=== PATIENT | male | born 1940 | race Caucasian/White ===

== ENCOUNTER 2023-08-29 13:11 | Inpatient (IN) | payer MEDICARE, SELFPAY ==
[2023-08-29] VITALS (43 sets, daily range): BP systolic 62–158; BP diastolic 49–87; BMI 23.2
[2023-08-29 07:43] LABS: % Basophils 0.7 % (0-2); % Eosinophils 2.4 % (0-6); % Immature Granulocytes 0.4 % (0-0.5); % Lymphocytes 13.1 % (20.5-51.1); % Monocytes 5.2 % (1.7-9.3); % Neutrophils 78.2 % (42.2-75.2); Absolute Basophils 0.1 10^3/uL (0-0.2); Absolute Eosinophils 0.2 10^3/uL (0-0.7); Absolute Lymphocytes 1.1 10^3/uL (1.2-3.4); Absolute Monocytes 0.4 10^3/uL (0.1-0.6); Absolute Neutrophils 6.4 10^3/uL (1.4-6.5); Hematocrit 37.6 % (39.0-52.0); Hemoglobin 11.5 g/dL (13.0-18.0); Mean Corp Hgb Conc. 30.6 g/dL (33.0-37.0); Mean Corpuscular Volume 81.7 fL (80.0-94.0); Mean Platelet Volume 11.2 fL (7.4-10.4); Nucleated Red Blood Cells % 0 % (-); Platelet Count 338 10^3/uL (130-400); Red Cell Dist. Width 20.2 % (11.5-14.5); White Blood Cell Count 8.2 10^3/uL (4.8-10.8)
[2023-08-29 07:52] LABS: ALT (SGPT) 12 U/L (0-50); AST (SGOT) 21 U/L (17-59); Albumin 3.4 g/dl (3.5-5.0); Alkaline Phosphatase 79 U/L (38-126); Blood Urea Nitrogen 24 mg/dl (9-20); Carbon Dioxide 27 mmol/L (22-30); Chloride 108 mmol/L (98-107); Glucose 111 mg/dl (70-99); Sodium 142 mmol/L (135-145); Total Bilirubin 0.6 mg/dl (0.2-1.3); Total Protein 5.7 g/dl (6.3-8.2); eGFR > 60.00
--- NOTE | 2023-08-29 08:00 | ED.GENMED ---
History of Present Illness
General
Chief Complaint: Rectal Bleeding
Source: patient
Exam Limitations: none
Time Seen by Provider: 08/29/23 07:47
History of Present Illness
History of Present Illness:
83-year-old male on aspirin but no other blood thinners presents with bright red rectal bleeding. He he woke up this morning had the urge to have a bowel movement and he states the whole toilet was full blood. He was feeling okay walked downstairs
and had another episode of large bloody bright red blood out bowel movement. There is no abdominal pain. No chest pain. He states he felt slightly lightheaded. No fever. Denies shortness of breath. He denies alcohol use. He denies regular
NSAID use otherwise. He said years ago he had diverticulitis. Lives at home with . No other complaints.
Past History
Past History
ED Past Medical History: Arrthythmia (bradycardia and SVT), Cancer (basal cell), HTN, Hypercholesterolemia, NIDDM, Renal failure (renal insufficiency), Other (nephrolithiasis, ) and Other (diverticular bleed, Gout, BPH, vitamin B12 deficiency,
history of mumps)
ED Past Surgical History: Cholecystectomy, Orthopedic (Left arm surgery after fracture), Tonsilectomy and Other (Mohs surgery for basal cell carcinoma)
Social History
Tobacco: Former smoker
Alcohol: Former (prior to 30 years ago)
Drug: None
Personal:
Living: with family
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
Family History
Family History: Other (reviewed and noncontributory)
Phy Exam
Physical Exam
Physical Exam:
General: Well-appearing male no acute respiratory distress
HEENT: Normocephalic atraumatic
Heart: Regular rate and rhythm no murmurs
Lungs: Clear no wheeze or rales
Abdomen is soft nontender nondistended no guarding or rebound
Rectal exam: Red blood at the anal orifice. No external hemorrhoids. Internal exam showed slightly darker appearance that is heme positive. No active bleeding during my exam
Extremities: No cyanosis or edema
Course
Orders/Labs/Results
Orders:
Orders
08/29/23 07:26
EKG [Electrocardiogram (*1)] Urgent
Reason for Study: Fatigue / Weakness
EKG- Treatment ONCE
08/29/23 07:31
Type+Screen Urgent
Complete Blood Count/With Diff Urgent
Comprehensive Metabolic Panel Urgent
Prothrombin Time Urgent
Troponin I Urgent
08/29/23 09:28
Pantoprazole [Protonix IV] 80 mg IV NOW STA
08/29/23 09:30
Pantoprazole 80 mg/100 ml Nss [Protonix] 80 mg in 100 ml IV Q10H
Abnormal Lab Results
08/29/23
07:31
RBC 4.60 L 10^6/uL
(4.70-6.10)
Hgb 11.5 L g/dL
(13.0-18.0)
Hct 37.6 L %
(39.0-52.0)
MCH 25.0 L pg
(27.0-31.0)
MCHC 30.6 L g/dL
(33.0-37.0)
RDW 20.2 H %
(11.5-14.5)
MPV 11.2 H fL
(7.4-10.4)
Absolute Lymphs (auto) 1.1 L 10^3/uL
(1.2-3.4)
Neutrophils % 78.2 H %
(42.2-75.2)
Lymphocytes % 13.1 L %
(20.5-51.1)
Chloride 108 H mmol/L
(98-107)
BUN 24 H mg/dl
(9-20)
Glucose 111 H mg/dl
(70-99)
Calcium 8.0 L mg/dl
(8.4-10.2)
Total Protein 5.7 L g/dl
(6.3-8.2)
Albumin 3.4 L g/dl
(3.5-5.0)
08/29/23 07:31
08/29/23 07:31
Vital Signs
Initial and Last Documented VS:
Initial Vital Signs
Temp Pulse Resp BP Pulse Ox
97.8 F 71 17 144/63 96
08/29/23 07:29 08/29/23 07:29 08/29/23 07:29 08/29/23 07:29 08/29/23 07:29
Last Documented Vital Signs
Temp Pulse Resp BP Pulse Ox
97.8 F 72 20 133/65 96
08/29/23 07:29 08/29/23 08:15 08/29/23 08:15 08/29/23 08:00 08/29/23 08:15
MDM/Problems Addressed
Differential Diagnosis Includes:
Rectal bleeding. No obvious sign of hemorrhoid externally. The blood is red to dark red. Consider diverticular bleed. Vital signs are stable at this time, do not suspect rapid upper GI bleed. Will check labs type and screen. Keep on monitor.
Considered CT angio of the abdomen for bleeding study however will hold off at this point given stability of patient
*Critical Care Note
Total Time (30-74mins, 75-104mins- exclusive of procedures): Not Applicable
Update Note
Update Note:
Hemoglobin 11.5. Patient has dark red stool on exam that is heme positive. Vital signs remained stable. He has had multiple episodes of this bleeding. Will admit to hospital for GI bleeding. Protonix ordered
ED Attending Note
-
Portions of this chart may have been created with voice recognition software.� Occasional wrong word or��sound alike� substitutions may have occurred due to the inherent limitations of voice recognition software.
Discharge Plan
Departure
Patient Disposition: Admit
Date of Disposition: 08/29/23
Time of Disposition: 09:33
Admit to: Telemetry
Presentation/result/management discussed w/ accepting MD/DO: Hospitalist
Discharge Problem:
Rectal bleeding
Prescriptions:
No Action
omeprazole 20 MG capsule,delayed release(DR/EC)
20 mg PO DAILY
calcium polycarbophil [Fiber-Tabs] 625 MG tablet
625 mg PO DAILY
acetaminophen [Tylenol Extra Strength] 500 MG tablet
1,000 mg PO Q6HPRN PRN (Reason: ARTHRITIS)
carvedilol 3.125 MG tablet
3.125 mg PO BID
finasteride 5 MG tablet
5 mg PO DAILY
atorvastatin 40 mg Tablet
40 mg PO QPM
multivitamin Tablet
1 tab PO DAILY
ciclopirox 8 % Solution
1 applic TOPICAL HS
tamsulosin 0.4 mg Capsule
0.8 mg PO HS
aspirin 81 mg tablet,chewable
81 mg PO DAILY
lisinopril 10 mg tablet
10 mg PO DAILY Qty: 14 0RF
losartan 50 mg tablet
50 mg PO DAILY Qty: 30 0RF
Referrals:
Choco Fraser DO [Family Provider] -
Interventions
Interventions:
*Risk Screen - Suicide Last Done: 08/29/23 07:28
*General Assessment Last Done: 08/29/23 07:28
*Neglect/Abuse Screening Last Done: 08/29/23 07:28
*ED COVID-19 Vaccine History Last Done: 08/29/23 07:28
OF-Svrrjf-Pyykdouqsz Assessment Last Done: 08/29/23 07:30
ED- Cardiac Assessment Last Done: 08/29/23 07:30
ED- Pulmonary Assessment Last Done: 08/29/23 07:30
Discharge Date and Time
Print Language: WOLOF
[2023-08-29 08:03] LABS: Troponin I < 0.012 ng/ml
[2023-08-29 08:40] LABS: INR 1.08; PT 14.1 Sec (11.4-14.6)
[2023-08-29] MEDS: PROTONIX IV 80 MG IV (09:41)
[2023-08-29] MEDS: PROTONIX 100 IV ×2 (09:42→19:06)
[2023-08-29] MEDS: ZOFRAN 4 MG IV (10:18)
--- NOTE | 2023-08-29 10:19 | CON.GI ---
Addendum entered and electronically signed by Jr Blue MD 08/29/23 12:01:
I saw and examined the patient.
The AGRICULTURAL PRODUCTION ENGINEER or PA's note was reviewed and I agree with the note.
Comment: 83yo male presents with painless rectal bleeding starting this morning- dark red at home with episodes in ER and hypotension. He had episode of bilious vomiting. Has had prior admissions for rectal bleeding most likely diverticular.
Colonoscopy has found multiple polyps on his OP colonoscopy in July 2022 and recommended 6 month repeat exam. EGD/colonoscopy done in April 2022 as inpatient for bleeding found blood throughout the colon, but none in the TI. This admission, Hgb
11.5. He had CTA that showed scattered areas of minimal enhancement in large bowel, rectum maybe inflammatory without findings to confirm active colonic bleeding. Repeat Hgb 8.5.
REC:
Keep NPO for now
Trend Hgb and transfuse as needed.
Hopefully bleeding stops spontaneously. If not, can prep for colonoscopy to localize/treat source
Most likely diverticular bleed, low index suspicion for UGI bleed
Will follow
Original Note:
Consultation
-
Date/Time Consultation Requested: 08/29/23 @ 09:49
Date/Time Consultation Performed: 08/29/23 @ 10:30
Requesting Provider: Dr. Mancini
Performing Provider: JONATHON Rocha; Dr. Jr Blue
Reason for Consultation: rectal bleeding
Medical History
Chief Complaint / HPI
Chief Complaint: rectal bleeding
History of Present Illness:
The patient is an 83-year-old male with a past medical history significant for diverticulosis with ?diverticular bleed 2018, prior admission in April 2022 with rectal bleeding thought to be diverticular with unrevealing endoscopic evaluation, CAD on
aspirin, CVA, chronic renal insufficiency, hypertension, hyperlipidemia, history of SVT, gout, BPH, vitamin B12 deficiency, type 2 diabetes, who presented to the emergency room with complaints of rectal bleeding, which we are being asked to evaluate
for. Upon review of prior records, the patient had been admitted for similar symptoms in April 2022, at that time with ongoing rectal bleeding. He underwent an EGD and colonoscopy during that admission to evaluate for source of bleeding but source
was unable to be revealed. He had a poor prep of his colonoscopy with blood coating the entire colon and some stool and multiple polyps were seen but he was advised to repeat his colonoscopy with better prep for adequate visualization. He did
undergo a CTA after his procedures which showed no evidence of active GI bleed. He had no further bleeding and was advised to repeat his colonoscopy outpatient. He did have a repeat colonoscopy with Dr. Roman in JulyJuly 2022 where multiple polyps
were removed, the largest 20 mm from the ascending colon and multiple other polyps, path as noted below. He was seen in follow-up post colonoscopy in November 2022 and at that time had been doing well with no further bleeding. He was advised on a
repeat colonoscopy given the pathology showing a sessile serrated lesion with focal low-grade dysplasia, a tubulovillous adenoma, and multiple adenomatous polyps on path otherwise, but he had been having issues with his blood pressure and therefore
a colonoscopy was deferred given his age and ongoing problems. He was advised to follow-up in 6 months in the office for further discussion. He had previous GI bleeding in 2018 which was thought to be diverticular. Today he reports that he had a
sudden onset of rectal bleeding starting this morning. He notes that he felt the urge to go to the bathroom, and when he looked in the toilet bowl it was full of blood. He had a subsequent episode at home, which warranted ER evaluation. He notes
that the stool was very dark red in color. He reports ongoing issues with chronic constipation but was not taking anything on a regular basis. He does admit to straining intermittently and going several days without a bowel movement. Will take
Colace which does help him move his bowels easier. He notes chronic gas and abdominal bloating as well. He denies any abdominal pain with these episodes of bleeding. At home he denies any lightheadedness, dizziness, syncope, chest pain, or
shortness of breath. He had been taking aspirin 325 mg daily for cardiac purposes. He otherwise denies use of NSAIDs or blood thinners. He denies alcohol use. He reports that his blood pressure has been stable at home. He has not started on any
new medications. He denies any recent antibiotics. He denies any recent surgeries or hospitalizations. He otherwise denies any abdominal pain, nausea, vomiting, fevers, chills, dysphagia, odynophagia, unintentional weight loss, or loss of
appetite. Upon ER evaluation he had dark red heme positive stool on rectal exam. Hemoglobin was 11.5. He has had several episodes of bleeding in the ER but has remained hemodynamically stable. He does take aspirin daily otherwise no blood
thinners. He was placed on PPI gtt, made n.p.o., and admitted for further evaluation by GI.
Just prior to my evaluation, the nurse reported the patient had a vagal episode and with a drop of blood pressure into the 60s. He was started on IV fluid bolus with improvement to systolic blood pressure in the 120s. He was having an active
episode of bleeding during my evaluation and was diaphoretic and pale appearing. A stat H&H was ordered along with a stat CT angio of the abdomen and pelvis.
Past Medical History
Past Medical History: Arrhythmias (SVT), CAD (On aspirin 325 mg), CVA, GERD, HTN, Hypercholesterolemia, NIDDM and Other (Diverticulosis, history of suspected diverticular bleed, history of advanced colon polyps on colonoscopy in July 2022
(tubulovillous adenoma, and sessile serrated adenoma with low-grade dysplasia), B12 deficiency, gout, BPH, kidney stones, chronic renal insufficiency)
Past Surgical History: Cholecystectomy, Orthopedic (Left arm surgery), Tonsilectomy and Other (Mohs procedure for basal cell carcinoma)
Social History
Tobacco: Non-Smoker
Alcohol: None
Drug: None
Personal:
Living: With Family
Family History
Family History: Reviewed & Not Pertinent
Allergies / Home Medications
Allergy/AdvReac Type Severity Reaction Status Date / Time
Penicillins Allergy Unknown Verified 08/29/23 07:26
from
childhood
�Medication �Instructions �Recorded
calcium polycarbophil 625 mg 625 mg PO DAILY Gastrointestinal 03/13/17
tablet (Fiber-Tabs) issue
omeprazole 20 mg capsule,delayed 20 mg PO DAILY Gastrointestinal 03/13/17
release issue
acetaminophen 500 mg tablet 1,000 mg PO Q6HPRN PRN ARTHRITIS 12/30/18
(Tylenol Extra Strength)
carvedilol 3.125 mg tablet 3.125 mg PO BID Blood pressure 12/30/18
finasteride 5 mg tablet 5 mg PO DAILY BPH 12/30/18
atorvastatin 40 mg tablet 40 mg PO QPM High cholesterol 04/26/22
aspirin 81 mg chewable tablet 325 mg PO DAILY Supplement 11/27/22
tamsulosin 0.4 mg capsule 0.8 mg PO HS Urinary Issue 11/27/22
losartan 50 mg tablet 50 mg PO DAILY #30 tabs 12/14/22
furosemide 20 mg tablet 20 mg PO DAILY 08/29/23
loratadine-pseudoephedrine ER 10 1 tab PO DAILY 08/29/23
mg-240 mg tablet,extended
[id number] (Claritin-D 24 Hour)
Review of Systems
-
History Source: Patient and Family
Constitutional: Reports No Symptoms
EENT: Reports No Symptoms
Respiratory: Reports No Symptoms
Cardiac: Reports No Symptoms
Abdomen/GI: Reports Constipated and Bloody Stools
: Reports No Symptoms
Musculoskeletal: Reports No Symptoms
Skin: Reports No Symptoms
Neurological: Reports Weakness
Vital Signs
Temp Pulse Resp BP Pulse Ox
97.8 F 72 20 133/65 96
08/29/23 07:29 08/29/23 08:15 08/29/23 08:15 08/29/23 08:00 08/29/23 08:15
Physical Exam
Exam
General: Well Nourished and Other (Elderly appearing male, pale appearing, and diaphoretic)
HEENT: Normocephalic, Anicteric and Atraumatic
Respiratory: Clear
Cardiac: S1/S2 and Regular Rhythm
Breast: N/A
GI: Soft, Non Tender, Non Distended and Normal Bowel Sounds
Rectal: Other (Per ER doctor positive for dark red blood and heme positive; dark red blood with clots in the bedpan)
Musculoskeletal: No Edema
Skin: Warm, Dry and Other (Pale appearing)
Neuro: Awake, Alert and Oriented
Psych: Calm
Results
WBC 8.2 10^3/uL (4.8-10.8) 08/29/23 07:31
Hgb 11.5 g/dL (13.0-18.0) L 08/29/23 07:
Hct 37.6 % (39.0-52.0) L 08/29/23 07:31
MCV 81.7 fL (80.0-94.0) 08/29/23 07:31
Plt Count 338 10^3/uL (130-400) 08/29/23 07:31
Absolute Neuts (auto) 6.4 10^3/uL (1.4-6.5) 08/29/23 07:31
PT 14.1 Sec (11.4-14.6) 08/29/23 07:31
INR 1.08 08/29/23 07:31
Sodium 142 mmol/L (135-145) 08/29/23 07:31
Potassium 4.0 mmol/L (3.5-5.1) 08/29/23 07:31
Chloride 108 mmol/L (98-107) H 08/29/23 07:31
Carbon Dioxide 27 mmol/L (22-30) 08/29/23 07:31
BUN 24 mg/dl (9-20) H 08/29/23 07:31
Creatinine 1.0 mg/dL (0.7-1.3) 08/29/23 07:31
Calcium 8.0 mg/dl (8.4-10.2) L 08/29/23 07:31
Total Bilirubin 0.6 mg/dl (0.2-1.3) 08/29/23 07:31
AST 21 U/L (17-59) 08/29/23 07:31
ALT 12 U/L (0-50) 08/29/23 07:31
Alkaline Phosphatase 79 U/L (38-126) 08/29/23 07:31
Diagnostic Image Results: None for review
Prior GI Procedures:
EGD: 04/28/22 Dr. Kelly: Normal esophagus. Small hiatal hernia. Multiple gastric polyps. Biopsied. Non-bleeding duodenal diverticulum.
Colonoscopy: 07/11/2022 Dr. Roman: Hemorrhoids found on perianal exam. The examined portion of the ileum was normal. One 20 mm polyp in the ascending colon, removed with mucosal resection. Resected and retrieved. Treated with argon plasma
coagulation (APC). Tattooed. Four 4 to 9 mm polyps in the ascending colon, removed with a cold snare. Resected and retrieved. Two 6 to 11 mm polyps in the transverse colon, removed with a cold snare. Resected and retrieved. One 7 mm polyp in the
descending colon, removed with a cold snare. Resected and retrieved. One 6 mm polyp in the rectum, removed with a cold snare. Resected and retrieved. Diverticulosis in the entire examined colon. Mucosal resection was performed. Resection and
retrieval were complete.
04/28/22 Dr. Kelly: Preparation of the colon was unsatisfactory with blood coating the entire colon with some stool. Diverticulosis in the sigmoid colon, in the descending colon, in the transverse colon and in the ascending
colon. Blood in the entire examined colon. One 25 mm polyp in the distal ascending colon. Biopsied. Four 5 to 10 mm polyps in the rectum, in the sigmoid colon, in the descending colon and in the transverse colon. Resection
not attempted. The examined portion of the ileum was normal.
Assessment / Plan
-
The patient is an 83-year-old male with a past medical history significant for diverticulosis with ?diverticular bleed 2017, prior admission in April 2022 with rectal bleeding thought to be diverticular with unrevealing endoscopic evaluation,
chronic constipation, CAD on aspirin, CVA, chronic renal insufficiency, hypertension, hyperlipidemia, history of SVT, gout, BPH, vitamin B12 deficiency, type 2 diabetes, who presented to the emergency room with complaints of rectal bleeding, with
concern for ongoing GI bleed with a vagal episode and drop of blood pressure in the emergency room any recurrent episode of large volume rectal bleeding of dark red blood with clots. His blood pressure has since improved in the 120 systolic after
IV fluids. Placed on a PPI drip and has been n.p.o. since yesterday. His hemoglobin was 11.5 with repeat stat H&H pending. He did have an episode of vomiting that was bilious in color.
Problem list:
-rectal bleeding
-hypotension 2/2 bleeding/hypovolemia improved with IV fluids
-Diverticulosis with hx suspected diverticular bleeding in 2017, April 2022
-Advanced colon polyps, Tubulovillous adenoma, SSA with low grade dysplasia, multiple adenomas in July 2022
-HX CAD on aspirin 325mg
-Chronic constipation
Other pertinent medical hx:
-HTN
-HLD
-GERD
-gout
-CVA
-BPH
-Vitamin b12 deficiency
-DM2
Recommendations:
-Etiology of rectal bleeding possibly diverticular versus less likely brisk upper GI bleed versus AVMs versus other. Similar presentation in 2022 with no clear source of bleeding identified on endoscopic evaluation and CTA.
-Given his hypotension episode and recurrent bleeding, will check a stat CT angio of the abdomen and pelvis, called CAT scan and he will be next for scan. The patient and his are agreeable to this plan. If active bleed will need IR
intervention.
-Stat H&H now, then trend
-Hold further aspirin, will need to discuss stopping this indefinitely given his recurrent bleeding
-Keep n.p.o. for now
-Monitor for recurrent bleeding
-Continue PPI drip for now, but given his bilious emesis I doubt this is an upper GI bleed.
-Large-bore IVs
-Continue IV fluids for blood pressure support
-Await CTA for further management
-Ensure hemodynamic stability
-He will need a bowel regimen at the time of discharge to prevent constipation and straining which can contribute to bleeding
-To consider colonoscopy versus flex Sig inpatient pending above
-Plan reviewed with Dr. Blue and the ER physician/nurse
-Will follow
Data Reviewed
-
Old Records: Reviewed
-
-
Thank you for consultation and allowing me to participate in the patient's care. Please call the compensation intern GI physician during the after hours with any questions or concerns.
[2023-08-29] MEDS: NSS 1000 IV ×3 (10:24→22:20)
[2023-08-29 11:27] LABS: Hematocrit 27.7 % (39.0-52.0); Hemoglobin 8.5 g/dL (13.0-18.0)
--- NOTE | 2023-08-29 12:27 | HPS.HSE ---
Family Physician
-
Family Physician: Chelsi Junior
Chief Complaint
-
Rectal bleeding
History of Present Illness
83 y/o M with PMHx:
CAD
CVA
GERD
Essential HTN
HLD
Vit B12 def
Gout
BPH
Nephrolithiasis
Diverticulosis
who p/w CC rectal bleeding. The patient had 2 episodes of large bright red blood per rectum this morning. He had some lightheadedness. He denies chest pain, shortness of breath, abdominal pain. Denies any recent NSAID use. He denies any other
acute symptoms. In the ER he had what appears to have been a vagal event.
Medical History
Past Medical History
Past Medical History: Reports Other (as per HPI)
Past Surgical History: Reports Other (N/A)
Social History
Tobacco: Former Smoker
Alcohol: Former (>30 years ago)
Drug: None
Family History
Family History: Not pertinent
Allergies / Home Medications
Allergies reflects when Allergies were last updated in [facility].
Home Medications with original date entered in [facility]
Allergy/Medication List:
Allergies
Allergy/AdvReac Type Severity Reaction Status Date / Time
Penicillins Allergy Unknown Verified 08/29/23 07:26
from
childhood
Home Medications
calcium polycarbophil 625 mg tablet (Fiber-Tabs) 625 mg PO DAILYPRN PRN constipation 03/13/17
omeprazole 20 mg capsule,delayed release 20 mg PO DAILY Gastrointestinal issue 03/13/17
carvedilol 3.125 mg tablet 3.125 mg PO BID Blood pressure 12/30/18
finasteride 5 mg tablet 5 mg PO DAILY BPH 12/30/18
atorvastatin 40 mg tablet 40 mg PO QPM High cholesterol 04/26/22
aspirin 81 mg chewable tablet 325 mg PO DAILY Supplement 11/27/22
tamsulosin 0.4 mg capsule 0.8 mg PO HS Urinary Issue 11/27/22
losartan 50 mg tablet 50 mg PO DAILY #30 tabs 12/14/22
docusate sodium 100 mg capsule (Colace) 100 mg PO BIDPRN PRN constipation 08/29/23
furosemide 20 mg tablet 20 mg PO DAILY 08/29/23
loratadine 10 mg tablet (Claritin) 10 mg PO DAILY 08/29/23
Review of Systems
-
History Source: Patient
A 12 point ROS was completed and negative except as noted: Yes
Physical Exam
Vital Signs
Vital Signs
Temp Pulse Resp BP Pulse Ox
97.8 F 80 22 124/61 95
08/29/23 07:29 08/29/23 11:50 08/29/23 11:50 08/29/23 11:50 08/29/23 11:50
Physical Exam
General: Other (.)
Laboratory Results
-
08/29/23 07:31
Laboratory Results
PT 14.1 Sec (11.4-14.6) 08/29/23 07:31
INR 1.08 08/29/23 07:31
Total Bilirubin 0.6 mg/dl (0.2-1.3) 08/29/23 07:31
AST 21 U/L (17-59) 08/29/23 07:31
ALT 12 U/L (0-50) 08/29/23 07:31
Alkaline Phosphatase 79 U/L (38-126) 08/29/23 07:31
Troponin I < 0.012 ng/ml 08/29/23 07:31
Impression/Plan
-
Gen: NAD, AAOx3.
Eyes: EOMI, PERRLA, no scleral icterus.
Neck: supple.
CV: RRR, +S1/S2, no m/r/g.
Resp: CTAB, no rales, wheezes, or rhonchi.
Abd: +BS, soft, NT, ND
Skin: No rashes.
Neuro: CN 2-12 intact, non-focal.
Psych: Normal mood and affect.
Acute blood loss anemia:
-Presented with bright red blood per rectum
-Continue Protonix drip in case this is an upper GI bleed with rapid transit time (less likely but want to be safe in short term)
-GI following
-NPO/IVFs
-trend Hb
-hold ASA (possibly contributed)
Other problems:
CAD: hold ASA, cont statin/Coreg
h/o CVA:
GERD: on PPI gtt
Essential HTN: Hold ARB/BB
HLD
Vit B12 def
Gout
BPH: cont Flomax
Nephrolithiasis
Diverticulosis
FULL/SCDs/IMU
[2023-08-29 14:29] LABS: Hemoglobin 9.6 g/dL (13.0-18.0)
[2023-08-29] MEDS: LIPITOR 40 MG PO (17:14)
[2023-08-29 19:23] LABS: Hemoglobin 9.1 g/dL (13.0-18.0)
--- NOTE | 2023-08-29 19:30 | PTCARENOTE ---
Received patient at 1900. Pt. currently in bed. Awake, alert, and oriented. Denies pain/discomfort at this time. Afebrile. Heart rhythm sinus. Blood pressure normotensive. Currently on room air. Lungs sound diminished. NPO. Small amount burgundy
stool. Voiding in urinal. Skin as documented. Discussed plan of care. Vital signs stable at this time.
[2023-08-29] MEDS: FLOMAX 0.8 MG PO (21:36)
[2023-08-30] VITALS (9 sets, daily range): BP systolic 138–169; BP diastolic 54–70; BMI 23.3
--- NOTE | 2023-08-30 | PTCARENOTE ---
Pt. assessment unchanged. 1x small amount burgundy stool earlier in shift. Last hemoglobin 9.1. Will continue to trend. Vital signs stable at this time.
--- NOTE | 2023-08-30 03:30 | PTCARENOTE ---
Pt. assessment remains unchanged. Has not had any additional bowel movements. AM labs drawn. Vital signs stable at this time.
[2023-08-30 03:48] LABS: Hematocrit 25.8 % (39.0-52.0); Hemoglobin 8.2 g/dL (13.0-18.0); Mean Corp Hgb Conc. 31.8 g/dL (33.0-37.0); Mean Corpuscular Hgb 25.5 pg (27.0-31.0); Mean Corpuscular Volume 80.4 fL (80.0-94.0); Mean Platelet Volume 11.5 fL (7.4-10.4); Platelet Count 272 10^3/uL (130-400); Red Blood Cell Count 3.21 10^6/uL (4.70-6.10); White Blood Cell Count 8.9 10^3/uL (4.8-10.8)
[2023-08-30 04:16] LABS: Blood Urea Nitrogen 23 mg/dl (9-20); Calcium 6.8 mg/dl (8.4-10.2); Carbon Dioxide 23 mmol/L (22-30); Chloride 112 mmol/L (98-107); Estimated Creatinine Clearance 56 ml/min; Glucose 76 mg/dl (70-99); Potassium 3.6 mmol/L (3.5-5.1); Sodium 141 mmol/L (135-145); eGFR > 60.00
[2023-08-30] MEDS: KCL 270 MEQ IV (04:35)
[2023-08-30] MEDS: CALCIUM GLUCONATE 290 MG IV (05:19)
[2023-08-30] MEDS: PROTONIX 100 IV (05:20)
[2023-08-30] MEDS: NSS 1000 IV ×2 (05:20→22:20)
--- NOTE | 2023-08-30 08:00 | W.PN.HOSP.TC ---
Today's Communication/Plan
-
see bold
Assessment / Plan
Assessment / Plan
Gen: NAD, AAOx3.
Eyes: EOMI, PERRLA, no scleral icterus.
Neck: supple.
CV: remains RRR, +S1/S2, no m/r/g.
Resp: remains CTAB, no rales, wheezes, or rhonchi.
Abd: remains +BS, soft, NT, ND
Skin: No rashes.
Neuro: CN 2-12 intact, non-focal.
Psych: Normal mood and affect.
Acute blood loss anemia:
-Presented with bright red blood per rectum
-stop Protonix gtt, change to PPI BID
-GI following
-NPO/IVFs (decreased rate to 60cc/hr)
-trend Hb
-holding ASA (possibly contributed)
Other problems:
CAD: hold ASA, cont statin/Coreg
h/o CVA:
GERD: on PPI
Essential HTN: restart BB/ARB
HLD
Vit B12 def
Gout
BPH: cont Flomax
Nephrolithiasis
Diverticulosis
FULL/SCDs
RN updated
Downgrade to tele.
Total time spent on today's encounter was 50 minutes which included time spent in counseling the patient/family regarding diagnosis and treatment plan as listed above, goals of care, and symptom management. Case was discussed with nursing staff,
specialists, and care coordinators/case management. All labs and imaging personally reviewed by me. Remainder the time spent in detailed review of previous records, lab data, imaging, and other medical provider documentation.
Anticipated Discharge: 24 - 48 hours
Subjective/Interval History
-
Date of Service: August 30, 2023
Denies CP/SOB/abd pain. One burgundy stool.
Objective Data
-
Labs:
Laboratory Results
08/30/23 08/30/23 08/30/23
02:34 03:20 08:34
WBC 8.9
Hgb Cancelled 8.2 L Pending
Hct Cancelled 25.8 L Pending
Plt Count 272
Sodium 141
Potassium 3.6
Chloride 112 H
Carbon Dioxide 23
BUN 23 H
Creatinine 0.9
Glucose 76
Calcium 6.8 L*
Vital Signs:
Vital Signs
Temp Pulse Resp BP Pulse Ox
98.9 F 60 24 158/63 97
08/30/23 07:06 08/30/23 06:00 08/30/23 06:00 08/30/23 06:00 08/30/23 04:00
I&O
08/29/23 08/30/23 08/31/23
06:59 06:59 06:59
Intake Total 2215 / 2215
Output Total 550 / 550
Balance 1665 / 1665
[2023-08-30] MEDS: PROSCAR 5 MG PO (08:01)
[2023-08-30] MEDS: CLARITIN 10 MG PO (08:01)
--- NOTE | 2023-08-30 08:17 | PTCARENOTE ---
Rec'd pt at 0700. Pt AAOx3, follows commands, NICHOLSON. Monitor SR with occas PAC/PVC. Lungs dim, pox 98% RA. +BS, abd soft/nt. Protonix gtts infusing at 8mg/hr. Vdg yellow urine via urinal. Pt asking when he can eat, explained process for GIB and need
for resting the stomach. Pt verbalizes understanding.
[2023-08-30] MEDS: COREG 3.125 MG PO ×2 (08:36→20:56)
[2023-08-30] MEDS: PROTONIX IV 40 MG IV (08:37)
[2023-08-30] MEDS: NSS (PRESERVATIVE FREE) 10 ML IV (08:37)
[2023-08-30] MEDS: COZAAR 50 MG PO (08:47)
--- NOTE | 2023-08-30 09:03 | W.PN.GI.CBS2 ---
Today's Communication / Plan
-
Hgb dropped to 8.2, but no further bleeding
Start low residue diet
D/C protonix gtt
Monitor for recurrent bleed and if no further, can probably d/c tomorrow
F/U with Dr Roman for colon polyp surveillance after d/c
Assessment / Plan
-
Summary: 83-year-old male with a past medical history significant for diverticulosis with ?diverticular bleed 2018, prior admission in April 2022 with rectal bleeding thought to be diverticular with unrevealing endoscopic evaluation, chronic
constipation, CAD on aspirin, CVA, chronic renal insufficiency, hypertension, hyperlipidemia, history of SVT, gout, BPH, vitamin B12 deficiency, type 2 diabetes, who presented to the emergency room with complaints of rectal bleeding, with concern
for ongoing GI bleed with a vagal episode and drop of blood pressure in the emergency room and recurrent episode of large volume rectal bleeding of dark red blood with clots. His blood pressure has since improved in the 120 systolic after IV
fluids. Placed on a PPI drip and has been n.p.o. since yesterday. His hemoglobin was 11.5 with repeat stat H&H pending. He did have an episode of vomiting that was bilious in color.
Problem list:
-rectal bleeding likely diverticular
-hypotension 2/2 bleeding/hypovolemia improved with IV fluids
-Diverticulosis with hx suspected diverticular bleeding in April 2022
-Advanced colon polyps, Tubulovillous adenoma, SSA with low grade dysplasia, multiple adenomas in July 2022
-HX CAD on aspirin 325mg
-Chronic constipation
Other pertinent medical hx:
-HTN
-HLD
-GERD
-gout
-CVA
-BPH
-Vitamin b12 deficiency
-DM2
Subjective
Subjective
Date of Service: August 30, 2023
No BMs since ER yesterday. Denies complaints.
Objective
Data Reviewed
Laboratory Data:
Laboratory Results
08/30/23 03:20
Laboratory Results
PT 14.1 Sec (11.4-14.6) 08/29/23 07:31
INR 1.08 08/29/23 07:31
Total Bilirubin 0.6 mg/dl (0.2-1.3) 08/29/23 07:31
AST 21 U/L (17-59) 08/29/23 07:31
ALT 12 U/L (0-50) 08/29/23 07:31
Alkaline Phosphatase 79 U/L (38-126) 08/29/23 07:31
Vital Signs and I&O:
Vital Signs
Temp Pulse Resp BP Pulse Ox
98.9 F 78 25 169/54 97
08/30/23 07:06 08/30/23 08:19 08/30/23 08:19 08/30/23 08:19 08/30/23 04:00
I&O
08/29/23 08/30/23 08/31/23
06:59 06:59 06:59
Intake Total 2215 / 2215 270 / 270
Output Total 550 / 550 500 / 500
Balance 1665 / 1665 -230 / -230
Physical Exam
Physical Exam
GI: Soft, Non Distended and Non Tender
[2023-08-30 09:10] LABS: Hemoglobin 8.2 g/dL (13.0-18.0)
--- NOTE | 2023-08-30 09:10 | PTCARENOTE ---
Spoke with MD about increasing SBP, home BP meds restarted. Protonix gtts dc'd. Pt for transfer to tele when bed available.
--- NOTE | 2023-08-30 11:55 | CM ---
CM following re: d/c planning.
Pt presents to with rectal bleeding.
GI on board.
CM met with pt at bedside to complete IA.
Pt resides with spouse, daughter, and grandchild at home.
he states he ambulates with walker and cane.
He has a stair glide.
No current VN.
PCP is Dr. Junior and [facility] in [place].
Pt does not anticipate any d/c needs.
We spoke about VN, but he declines.
Goal: home, no needs.
--- NOTE | 2023-08-30 14:30 | CHAP ---
Visited Mr. Barriga at 10:00. He is a bit frustrated, but accepting of his situation. Emotional and spiritual support provided.
--- NOTE | 2023-08-30 16:01 | PTCARENOTE ---
~1400 pt assisted OOB to recliner chair. Pt stated he felt a little dizzy upon standing, BP taken- SBP 150's. Pt to bathroom with walker and assist of 1, cristela mckeon BMx2. Family in to visit, updated.
[2023-08-30] MEDS: LIPITOR 40 MG PO (17:05)
--- NOTE | 2023-08-30 20:47 | PTCARENOTE ---
assumed care of patient approx 1900.
OOB to bathroom for ADLs.
Remains sinus, slightly hypertensive, home bp meds restarted. No complaints offered.
cont. to monitor for refractory bleeding.
[2023-08-30] MEDS: FLOMAX 0.8 MG PO (22:20)
[2023-08-31] VITALS: BP 128/65
--- NOTE | 2023-08-31 00:45 | PTCARENOTE ---
No change in assessment. Pt. resting in bed/ hemodynamically stable, offers no complaints.
[2023-08-31 04:00] VITALS: BP 162/65
--- NOTE | 2023-08-31 04:06 | PTCARENOTE ---
No change in patient assessment.
[2023-08-31 04:35] LABS: Hematocrit 25.4 % (39.0-52.0); Mean Corp Hgb Conc. 31.5 g/dL (33.0-37.0); Mean Corpuscular Hgb 25.6 pg (27.0-31.0); Mean Corpuscular Volume 81.2 fL (80.0-94.0); Mean Platelet Volume 10.8 fL (7.4-10.4); Platelet Count 275 10^3/uL (130-400); Red Blood Cell Count 3.13 10^6/uL (4.70-6.10); Red Cell Dist. Width 20.2 % (11.5-14.5); White Blood Cell Count 8.2 10^3/uL (4.8-10.8)
[2023-08-31 04:49] LABS: Blood Urea Nitrogen 18 mg/dl (9-20); Calcium 8.1 mg/dl (8.4-10.2); Carbon Dioxide 25 mmol/L (22-30); Chloride 111 mmol/L (98-107); Estimated Creatinine Clearance 46 ml/min; Glucose 91 mg/dl (70-99); Potassium 3.7 mmol/L (3.5-5.1); Sodium 142 mmol/L (135-145); eGFR > 60.00
[2023-08-31 05:54] VITALS: BMI 23.2
[2023-08-31] MEDS: CLARITIN 10 MG PO (07:42)
[2023-08-31] MEDS: COREG 3.125 MG PO (07:42)
[2023-08-31] MEDS: COZAAR 50 MG PO (07:43)
[2023-08-31] MEDS: PROSCAR 5 MG PO (07:43)
[2023-08-31 07:45] VITALS: BP 160/60
--- NOTE | 2023-08-31 09:57 | W.PN.HOSP.TC ---
Today's Communication/Plan
-
d/c home
Assessment / Plan
Assessment / Plan
Acute blood loss anemia
Presumed diverticular bleed
-Presented with bright red blood per rectum
-GI evaluated and suspected diverticular bleed in nature. No further intervention/C-scope recommended
-Able to tolerate low residue diet
-No further episodes of GI bleed overnight. Hemoglobin drifted down to 8, close to hemoglobin of 8.2 from yesterday
-At discharge decrease aspirin to 81 mg daily -unclear why patient was on 325 mg daily
-Follow-up CBC prescription in 1 week provided
Other problems:
CAD: resume back on asa/statin/coreg
h/o CVA:
GERD: on PPI
Essential HTN: restart BB/ARB
HLD
Vit B12 def
Gout
BPH: cont Flomax
Nephrolithiasis
Diverticulosis
FULL/SCDs
More than 30 minutes spent in discharge including
Final examination of the patient
Summarizing hospital stay
Instructions for continuing care to all relevant caregivers
Preparation of discharge records, prescriptions, and referral forms
Total time spent (in minutes): 38 mins
Anticipated Discharge: Today
Subjective/Interval History
-
Date of Service: August 31, 2023
Denies more blood in stool overnight
No abdominal pain/nausea
No other acute issues
Objective Data
-
Labs:
Laboratory Results
08/31/23
04:14
WBC 8.2
Hgb 8.0 L
Hct 25.4 L
Plt Count 275
Sodium 142
Potassium 3.7
Chloride 111 H
Carbon Dioxide 25
BUN 18
Creatinine 1.1
Glucose 91
Calcium 8.1 L
Vital Signs:
Vital Signs
Temp Pulse Resp BP Pulse Ox
98.6 F 46 16 160/60 97
08/31/23 07:46 08/31/23 08:00 08/31/23 07:45 08/31/23 07:45 08/31/23 07:46
I&O
08/30/23 08/31/23 09/01/23
06:59 06:59 06:59
Intake Total 2215 / 2285 2360 / 2360
Output Total 550 / 550 1850 / 1850
Balance 1665 / 1735 510 / 510
Review of Systems
-
Respiratory: Reports No Symptoms
Cardiac: Reports No Symptoms
Abdomen/GI: Reports No Symptoms
Physical Exam
-
General: No Apparent Distress and Comfortable
HEENT: Negative Oxygen
Respiratory: Clear to Auscultation
Cardiac: Regular Rhythm and S1/S2; Negative Murmur or Rub
GI: Soft, Nontender, Nondistended and Normal Bowel Sounds
Musculoskeletal: No Edema
Neuro: Awake, Alert, Oriented, No Motor Deficits and Nonfocal/Grossly Intact
Psych: Calm
--- NOTE | 2023-08-31 10:49 | W.PN.GI.CBS2 ---
Today's Communication / Plan
-
OK for d/c
Told pt to call to set up follow up colonoscopy with Dr Roman for multiple polyps
Assessment / Plan
-
Summary: 83-year-old male with a past medical history significant for diverticulosis with ?diverticular bleed 2018, prior admission in April 2022 with rectal bleeding thought to be diverticular with unrevealing endoscopic evaluation, chronic
constipation, CAD on aspirin, CVA, chronic renal insufficiency, hypertension, hyperlipidemia, history of SVT, gout, BPH, vitamin B12 deficiency, type 2 diabetes, who presented to the emergency room with complaints of rectal bleeding, with concern
for ongoing GI bleed with a vagal episode and drop of blood pressure in the emergency room and recurrent episode of large volume rectal bleeding of dark red blood with clots. His blood pressure has since improved in the 120 systolic after IV
fluids. Placed on a PPI drip and has been n.p.o. since yesterday. His hemoglobin was 11.5 with repeat stat H&H pending. He did have an episode of vomiting that was bilious in color.
Problem list:
-rectal bleeding likely diverticular
-hypotension 2/2 bleeding/hypovolemia improved with IV fluids
-Diverticulosis with hx suspected diverticular bleeding in 2017, April 2022
-Advanced colon polyps, Tubulovillous adenoma, SSA with low grade dysplasia, multiple adenomas in July 2022
-HX CAD on aspirin 325mg
-Chronic constipation
Other pertinent medical hx:
-HTN
-HLD
-GERD
-gout
-CVA
-BPH
-Vitamin b12 deficiency
-DM2
Subjective
Subjective
Date of Service: August 31, 2023
No further bleeding. Tolerated diet
Objective
Data Reviewed
Laboratory Data:
Laboratory Results
08/31/23 04:14
08/31/23 04:14
Laboratory Results
PT 14.1 Sec (11.4-14.6) 08/29/23 07:31
INR 1.08 08/29/23 07:31
Total Bilirubin 0.6 mg/dl (0.2-1.3) 08/29/23 07:31
AST 21 U/L (17-59) 08/29/23 07:31
ALT 12 U/L (0-50) 08/29/23 07:31
Alkaline Phosphatase 79 U/L (38-126) 08/29/23 07:31
Vital Signs and I&O:
Vital Signs
Temp Pulse Resp BP Pulse Ox
98.6 F 58 16 160/60 97
08/31/23 07:46 08/31/23 10:00 08/31/23 07:45 08/31/23 07:45 08/31/23 07:46
I&O
08/30/23 08/31/23 09/01/23
06:59 06:59 06:59
Intake Total 2215 / 2285 2360 / 2360
Output Total 550 / 550 1850 / 1850
Balance 1665 / 1735 510 / 510
Physical Exam
Physical Exam
GI: Soft, Non Distended and Non Tender
--- NOTE | 2023-08-31 10:55 | CM ---
CM following re: discharge planning.
Reviewed pt's chart, met with pt.
Discharge order noted. Pt is aware, expressed his agreement with discharge. IMM reviewed, placed on chart, pt has a copy.
Pt reports he lives with spouse in a 2SH, 2 steps to enter, has 2 supportive children. Pt reports he uses both a walker and a cane, has stair glide. Pt declined after care VN services. Pt stated his spouse is coming to transport him home.
D/C plan: home no after care VN needs. Spouse to transport.
--- NOTE | 2023-08-31 11:35 | PTCARENOTE ---
Discharge instructions, medications, and prescriptions reviewed with pt and caregiver. PT discharged at 1130
== END 2023-08-31 11:55 | disposition home or self-care (01) | DRG 378 ==
LOC: ICU 13:11
PROVIDERS: Nurse Practitioner Family; ADMITTING PHYSICIAN Internal Medicine; ATTENDING PHYSICIAN Hospitalist; CONSULT PHYSICIAN Specialist; EMERGENCY PHYSICIAN Emergency Medicine; FAMILY PHYSICIAN Family Medicine
DX: K57.91 Diverticulosis of intestine, part unspecified, without perforation or abscess with bleeding (principal); D62 Acute posthemorrhagic anemia; Z87.891 Personal history of nicotine dependence; I25.10 Atherosclerotic heart disease of native coronary artery without angina pectoris; I12.9 Hypertensive chronic kidney disease with stage 1 through stage 4 chronic kidney disease, or unspecified chronic kidney disease; E11.22 Type 2 diabetes mellitus with diabetic chronic kidney disease; N18.9 Chronic kidney disease, unspecified; E78.00 Pure hypercholesterolemia, unspecified; K63.5 Polyp of colon; E53.8 Deficiency of other specified B group vitamins
CPT/HCPCS: 74174; 80048; 80053; 84484; 85014; 85018; 85025; 85027; 85610; 86850; 86900; 86901; 93005; 96365; 96366; 96375; 99285; Q9967

== ENCOUNTER 2024-11-17 10:37 | Emergency (ER) | payer MEDICARE, BC, SELFPAY ==
[2024-11-17 10:39] VITALS: BP 207/76
--- NOTE | 2024-11-17 11:09 | ED.GENMED ---
History of Present Illness
General
Chief Complaint: Back Pain
Time Seen by Provider: 11/17/24 11:09
History of Present Illness
History of Present Illness:
FOCUSED PAST MEDICAL HISTORY
- High blood pressure
REVIEW OF OLD RECORDS
- The patient was admitted in August 2023 with presumed diverticular bleed/lower GI bleed. At that time the patient was also hypotensive.
- A-fib: Note from late indicated patient had a 'heart rate 45 ventricular ectopy high blood pressure, back pain'
Note:
CHIEF COMPLAINT(S)
Right-sided back pain near the hip and pelvis area.
HISTORY OF PRESENT ILLNESS
The patient is an 84-year-old male who presented with right-sided pain located near the hip and pelvis area. He has experienced this pain for approximately one and a half weeks. The pain is described as not significantly severe at the moment. The
patient mentioned discomfort when moving or twisting, but the pain is not exacerbated significantly by palpation or pressure. The pain has no significant abdominal pain, and no masses were detected. The patient has no history of aortic aneurysms.
He attempted to manage the pain by taking an unspecified medication. The patients primary care nurse practitioner noted elevated blood pressure during a recent visit. An irregular EKG was mentioned, though details were unclear to the patient. The
patient used to be on blood pressure medication, Carvedilol, which he did not take today. He also mentioned having issues with his kidneys in the past and suggested that the pain might be related to this history.
CHRONIC MEDICAL CONDITIONS SIGNIFICANTLY AFFECTING CARE
Hypertension.
MEDICATIONS
The patient is unsure as he following:
Carvedilol today with this 3.125 mg daily
Losartan 50mg daily
PHYSICAL EXAM
General: Alert, no acute distress.
Skin: Warm, dry.
Head: Normocephalic, atraumatic.
Neck: Supple, trachea midline.
Eye, Ears, Nose, Mouth and Throat: Oral mucosa moist.
Cardiovascular: Normal peripheral perfusion, no edema.
Respiratory: Respirations are non-labored.
Gastrointestinal: Abdomen nondistended, discomfort upon palpation but no masses detected.
Back: Normal range of motion, Normal alignment.
Musculoskeletal: Normal range of motion, normal strength.
Neurological: Alert and oriented to person, place, time, and situation, No focal neurological deficit observed.
Psychiatric: Cooperative, appropriate mood and affect.
PROBLEM LIST
Acute: Right-sided back and pelvic pain.
Chronic: Hypertension.
PLAN
1. The patient will undergo a Computed Tomography (CT) scan of the abdomen to evaluate for any signs of aortic abnormalities or kidney stones, and to assess bones and muscles.
2. Consider administering a dose of Losartan, contingent upon verification, as an interim treatment for elevated blood pressure.
3. The patient declined Tylenol for pain management.
4. The patient will provide a urine sample for analysis.
DIFFERENTIAL DIAGNOSIS
The Differential Diagnosis includes, in no particular order and is not limited to:
1. Musculoskeletal strain
2. Kidney stone
3. Urinary tract infection
4. Aortic aneurysm
5. Pyelonephritis
6. Renal colic
7. Osteoarthritis
8. Lumbar radiculopathy
9. Hip fracture
10. Abdominal aortic aneurysm
RADIOLOGY
- CT imaging pending�I personally reviewed CT no acute abnormality, bilateral renal cysts again noted
EKG
- Sinus 46, leftward axis deviation, no acute ST abnormality
LABS
- As ordered considered urinalysis however the patient has no urinary symptoms
UPDATE
-SUMMARY OF ENCOUNTER
The patient, an 84-year-old male, was seen in the emergency department for right-sided back pain near the hip and pelvis area that has been ongoing for about one and a half weeks. A CT scan of the abdomen was performed to evaluate for kidney stones
or aortic abnormalities. The scan showed no signs of kidney stones, and kidneys appeared similar to previous findings with no notable acute issues. The pain is believed to be possibly musculoskeletal in nature. The patient was given an additional
dose of blood pressure medication during the visit as a supplemental dosage.
DISPOSITION
The patient is being discharged to home.
ASSESSMENT
The patients right-sided back pain is likely musculoskeletal.
PLAN
The patient will be allowed to go home as no acute issues were identified during evaluation.
INDEPENDENT REVIEW OF LABS AND INTERPRETATION OF TESTS
My independent interpretation of the CT scan of the abdomen shows no signs of kidney stones, with the appearance of kidneys unchanged from previous imaging.
PATIENT EDUCATION AND COUNSELING
The patient was informed that the CT scan did not show any kidney stones and that the pain might be musculoskeletal in nature. The importance of continuing prescribed blood pressure medication was emphasized.
MEDICATION RECONCILIATION
The patient reported taking morning medication, and an extra dose of a blood pressure medication was administered in the emergency department.
MEDICAL DECISION MAKING
-Complexity of Data Reviewed: Chronic conditions affecting care include the patients known history of hypertension. Differential diagnosis considered musculoskeletal strain, kidney stone, urinary tract infection, aortic aneurysm, pyelonephritis,
renal colic, osteoarthritis, lumbar radiculopathy, hip fracture, and abdominal aortic aneurysm.
-Data:
Category 1: The CT scan of the abdomen was ordered and independently interpreted, revealing no acute abnormalities.
-Risk: Consideration of Admission/Observation: Escalation of care including admission/observation was considered given the complexity and risk of the patients presenting complaint, exam findings, and/or their underlying comorbidities. However,
ultimately I feel the patient is safe for outpatient management with close follow-up. Reasoning: Work-up reassuring, does not reveal any acute life/organ threatening processes, patients symptoms well controlled upon reevaluation, reexamination is
reassuring, vitals are stable, patient agreeable with discharge, reliable for follow-up.
DIAGNOSIS
Musculoskeletal pain, ICD-10: M79.1
Hypertension, ICD-10: I10
Past History
Past History
ED Past Medical History: Arrthythmia (bradycardia and SVT), Cancer (basal cell), HTN, Hypercholesterolemia, NIDDM, Renal failure (renal insufficiency), Other (nephrolithiasis, ) and Other (diverticular bleed, Gout, BPH, vitamin B12 deficiency,
history of mumps)
ED Past Surgical History: Cholecystectomy, Orthopedic (Left arm surgery after fracture), Tonsilectomy and Other (Mohs surgery for basal cell carcinoma)
Social History
Tobacco: Former smoker
Alcohol: Former (prior to 30 years ago)
Drug: None
Personal:
Living: with family
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
Family History
Family History: Other (reviewed and noncontributory)
Phy Exam
Physical Exam
Physical Exam:
See HPI
Course
Orders/Labs/Results
Orders:
Orders
11/17/24 10:44
Electrocardiogram (*1) Urgent
Reason for Study: Bradycardia / Tachycardia
11/17/24 10:45
EKG- Treatment ONCE
11/17/24 11:20
CT Abd/pel Without Iv Or Oral Urgent
Comment:
Reason For Exam: R flank pain
Losartan [Cozaar] 50 mg PO NOW STA
Vital Signs
Initial and Last Documented VS:
Initial Vital Signs
Temp Pulse Resp BP Pulse Ox
36.4 C 43 15 207/76 97
11/17/24 10:39 11/17/24 10:39 11/17/24 10:39 11/17/24 10:39 11/17/24 10:39
Last Documented Vital Signs
Temp Pulse Resp BP Pulse Ox
36.4 C 45 16 178/57 95
11/17/24 10:39 11/17/24 12:00 11/17/24 12:00 11/17/24 12:00 11/17/24 12:00
*Pulse Oximetry
SaO2: 97
Oxygen Mode of Delivery: Room air
Patient hypoxic: no
*Critical Care Note
Total Time (30-74mins, 75-104mins- exclusive of procedures): Not Applicable
ED Attending Note
-
Portions of this chart may have been created with voice recognition software.� Occasional wrong word or��sound alike� substitutions may have occurred due to the inherent limitations of voice recognition software.
Discharge Plan
Departure
Prescriptions:
No Action
calcium polycarbophil [Fiber-Tabs] 625 MG tablet
625 mg PO DAILYPRN PRN (Reason: constipation)
carvedilol 3.125 MG tablet
3.125 mg PO BID
finasteride 5 MG tablet
5 mg PO DAILY
atorvastatin 40 mg Tablet
40 mg PO QPM
tamsulosin 0.4 mg Capsule
0.8 mg PO HS
losartan 50 mg tablet
50 mg PO DAILY Qty: 30 0RF
furosemide 20 mg Tablet
20 mg PO DAILY
Patient Comments:
PT TAKES WHEN HE HAS NO PLANS TO GO OUT
docusate sodium [Colace] 100 mg Capsule
100 mg PO BIDPRN PRN (Reason: constipation)
loratadine [Claritin] 10 mg Tablet
10 mg PO DAILY
acetaminophen [Tylenol Extra Strength] 500 mg Tablet
1,000 mg PO Q6H PRN (Reason: PAIN)
aspirin 81 mg tablet,chewable
81 mg PO DAILY Qty: 0 0RF
ferrous sulfate 325 mg (65 mg iron) tablet
325 mg PO Q48H Qty: 30 0RF
Referrals:
Chelsi Junior MD [Family Provider, Family Practice]
Interventions
Interventions:
*Risk Screen - Suicide Last Done: 11/17/24 10:39
*Neglect/Abuse Screening Last Done: 11/17/24 10:44
Discharge Date and Time
Print Language: AMHARIC
[2024-11-17 11:25] VITALS: BP 206/65
[2024-11-17] MEDS: COZAAR 50 MG PO (11:28)
[2024-11-17 12:00] VITALS: BP 178/57
[2024-11-17 12:43] VITALS: BP 168/72
== END 2024-11-17 12:44 | disposition home or self-care (01) ==
LOC: EMR 10:37
PROVIDERS: EMERGENCY PHYSICIAN Emergency Medicine; FAMILY PHYSICIAN Family Medicine
DX: M54.9 Dorsalgia, unspecified (principal); R10.2 Pelvic and perineal pain; I10 Essential (primary) hypertension; E11.9 Type 2 diabetes mellitus without complications; E78.00 Pure hypercholesterolemia, unspecified; Z85.828 Personal history of other malignant neoplasm of skin; Z87.891 Personal history of nicotine dependence; Z79.899 Other long term (current) drug therapy
CPT/HCPCS: 99284; 74176; 93005